=== PATIENT | female | born 1930 | race African-American/Black ===

== ENCOUNTER 2017-07-13 09:42 | Emergency (ER) | payer MEDICARE, MEDICAID ==
[~2017-07-13] VITALS: Ht 160 cm; Wt 70.0 kg
[~2017-07-13 09:42] MED LIST: AMLO5TAB96 PO; GLIP5 PO; OXYB10TA PO; ROBA750T3 PO; TOLT10TA PO; TRAD5TAB PO; TRAM50 PO
[2017-07-13 09:53] VITALS: BP 220/90; PULSE 63; RESP 22; TEMP 98.9
--- NOTE | 2017-07-13 11:04 | PD ---
HPI . needs refills on medicines Chief Complaint: Medication Refill Request Time Seen by Provider: 11:04 Travel History International Travel<30 days: No Contact w/Intl Traveler<30days: No Traveled to known affect area: No History of Present Illness HPI 87-year-old female with history of hypertension and diabetes here requesting refills on her medication. Patient recently moved from [place] approximately 4- 5 months ago and does not have a primary care locally. She tells me that she has [employer] insurance and was told that there are no providers in this area that take her plan. She does not report any issues other than feeling down about not having a place of her own to live. She says that she is staying with her friends and sleeping on their couch with her legs hanging down daily. She is not suicidal or homicidal. PFSH Past Medical History Arthritis: Yes High Cholesterol: Yes Diabetes: Yes Diminished Hearing: No Hypertension: Yes Immunizations Current: No ?: Not Menopausal: Yes Social History Alcohol Use: No Tobacco Use: No Substance Use: No Allergies-Medications (Allergen,Severity, Reaction): Coded Allergies: No Known Allergies (Verified , 07/13/17) Reported Meds & Prescriptions Reported Meds & Active Scripts Active Oxybutynin ER 24 HR (Oxybutynin Chloride) 10 Mg Tab 10 Mg PO DAILY 30 Days Norvasc (Amlodipine Besylate) 5 Mg Tab 5 Mg PO DAILY 30 Days Januvia (Sitagliptin Phosphate) 25 Mg Tab 25 Mg PO DAILY 30 Days Reported Latanoprost Opth Drops (Latanoprost) 0.005% Drops 1 Drop EACH EYE HS Refrigerate until opened. Latanoprost Opth Drops (Latanoprost) 0.005% Drops 1 Drop EACH EYE HS Refrigerate until opened. Timolol Opth Drops 0.25 % Soln Review of Systems General / Constitutional: No: Fever Eyes: No: Visual changes HENT: No: Headaches Cardiovascular: No: Chest Pain or Discomfort, Palpitations, Irregular Rhythm, Tachycardia, Diaphoresis, Syncope Respiratory: No: Cough, Shortness of Breath, Wheezing, Sneezing Gastrointestinal: No: Abdominal Pain Genitourinary: No: Dysuria Musculoskeletal: No: Pain Skin: No Rash Neurologic: No: Weakness Psychiatric: No: Depression Endocrine: No: Polydipsia Hematologic/Lymphatic: No: Easy Bruising Physical Exam Narrative GENERAL: AAO x 3, no acute distress, Well-nourished, well-developed patient. SKIN: Warm and dry. No visible rashes or bruising. HEAD: Normocephalic and atraumatic. EYES: No scleral icterus. No injection or drainage. ENT: No nasal drainage noted. Mucous membranes pink. Airway patent. NECK: Supple, trachea midline. No JVD. CARDIOVASCULAR: Regular rate and rhythm without murmurs, gallops, or rubs. RESPIRATORY: Breath sounds equal bilaterally. No accessory muscle use. No rhonchi or rales. GASTROINTESTINAL: Abdomen soft, non-tender, nondistended. EXTREMITIES: No cyanosis. Trace edema to the bilateral lower extremities. Pedal pulses palpable and normal. BACK: No obvious deformity. NEURO: CN II-12 intact, UE and LE 5/5, no focal deficits PSYCH: AAO x 3, normal affect. Data Data Last Documented VS Vital Signs Date Time Temp Pulse Resp B/P (MAP) Pulse Ox O2 Delivery O2 Flow Rate FiO2 07/13/17 12:29 85 20 193/85 (121) 99 Room Air 07/13/17 09:53 98.9 Orders Orders Hydralazine (Apresoline) (07/13/17 11:45) MDM Medical Decision Making Medical Screen Exam Complete: Yes Emergency Medical Condition: Yes Medical Record Reviewed: Yes Differential Diagnosis Medication refill, hypertension, diabetes Narrative Course 87-year-old female here requesting refills on her medication. Her blood pressures elevated. I wonder if she is taking all of her medications as prescribed and if she actually has access to all of her medications. I will provide her with refills today, ultimately she will need to see a primary care provider. I will contact case management to see if there is any way to assist her with figuring out who can take her insurance locally. I contacted case management and was told that, "This is something they do not do , but we will talk to her." Patient's bp remains elevated: I have provided her with Hydralazine here in the ED. She has no complaints and doing well. Psychiatric Attendant Glory spoke with the patient and tried to arrange placement. Patient declines transfer to any facility. She insists on returning home with her friends. She has a PCP in [place], but has not had an appointment in 1 year. BP improved. Patient feeling well. Discussed with my attending Dr. Bynum. Diagnosis Primary Impression: Medication refill Patient Instructions: General Instructions Additional Instructions: Please follow up with your primary care provider. Med/Other Pt SpecificInfo: Prescription(s) given Scripts Oxybutynin ER 24 HR (Oxybutynin ER 24 HR) 10 Mg Tab 10 MG PO DAILY for Overactive Bladder for 30 Days, TAB 0 Refills Prov: Alma Rosa Bynum MD 07/13/17 Amlodipine (Norvasc) 5 Mg Tab 5 MG PO DAILY for Blood Pressure Management for 30 Days, TAB 0 Refills Prov: Alma Rosa Bynum MD 07/13/17 Sitagliptin (Januvia) 25 Mg Tab 25 MG PO DAILY for Blood Sugar Management for 30 Days, TAB 0 Refills Prov: Alma Rosa Bynum MD 07/13/17 Disposition: 01 DISCHARGE HOME Condition: Stable Beverly Ronquillo Jul 13, 2017 11:04
[2017-07-13 11:05] VITALS: BP 210/104; PULSE 68; RESP 20; O2SAT 98
[2017-07-13] MEDS ORDERED: OXYB10TA PO ×2 (11:18→11:19)
[2017-07-13] MEDS ORDERED: SITA25 PO ×2 (11:18→11:19)
[2017-07-13] MEDS ORDERED: LATA0.002 EACH EYE (11:18)
[2017-07-13] MEDS ORDERED: AMLO5 PO ×2 (11:18→11:19)
[2017-07-13] MEDS ORDERED: TIMO0.257 (11:18)
[2017-07-13 11:31] VITALS: BP 224/92; PULSE 65; RESP 20; O2SAT 98
[2017-07-13] MEDS ORDERED: hydrALAZINE HCL 50 MG TAB PO ONE (11:45)
[2017-07-13 12:22] VITALS: BP 234/97; PULSE 87; RESP 18; O2SAT 99
[2017-07-13 12:29] VITALS: BP 193/85; PULSE 85; RESP 20; O2SAT 99
== END 2017-07-13 13:21 | disposition home or self-care (01) ==
LOC: NEPD 09:42
DX: I10 Essential (primary) hypertension (principal); E11.9 Type 2 diabetes mellitus without complications; E78.00 Pure hypercholesterolemia, unspecified; Z76.0 Encounter for issue of repeat prescription; Z79.84 Long term (current) use of oral hypoglycemic drugs; Z87.39 Personal history of other diseases of the musculoskeletal system and connective tissue
CPT/HCPCS: 99284

== ENCOUNTER 2017-12-29 17:34 | Emergency (ER) | payer MEDICARE, MEDICAID ==
[~2017-12-29] VITALS: Ht 157.5 cm; Wt 50.0 kg
[~2017-12-29 17:34] MED LIST changes: +AMLO5 PO; -AMLO5TAB96 PO; -GLIP5 PO; -ROBA750T3 PO; +SITA25 PO; +TIMO0.257; -TOLT10TA PO; -TRAD5TAB PO; -TRAM50 PO
[2017-12-29 17:35] VITALS: BP 204/97; PULSE 92; RESP 16; TEMP 97.7; O2SAT 99
[2017-12-29 17:59] VITALS: BP 186/86; PULSE 70; RESP 18; O2SAT 97
[2017-12-29] MEDS ORDERED: cloNIDine HCL 0.1 MG TAB PO ONE (18:15)
--- NOTE | 2017-12-29 18:17 | PD ---
HPI Chief Complaint: Psychiatric Symptoms Time Seen by Provider: 17:45 Travel History International Travel<30 days: No Contact w/Intl Traveler<30days: No Traveled to known affect area: No History of Present Illness HPI 87-year-old female that presents to the ED for evaluation of depression. Patient [id number] for evaluation of this. Per patient she's been feeling depressed for about almost a year now secondary to eating kicked out of living with her family. Per patient she was told that she needed to go a detention but she did not want this and she was very upset about this. She didn't depressed because she for the most part has no family here to help her even though they do live here. She per patient states with [employer] and is for the most part homeless. She does follow with her doctor and takes medications. She states that she has no suicidal ideation but feels that she might hurt some people because she feels angry about them. She denies any urinary or bowel movement issues. No chest pain or shortness of breath. History of hypertension and diabetes. His been compliant. No allergies to medication. PFSH Past Medical History Arthritis: Yes Depression: Yes Cardiovascular Problems: Yes High Cholesterol: Yes Diabetes: Yes Patient Takes Glucophage: No Diminished Hearing: No Hypertension: Yes Immunizations Current: No Tetanus Vaccination: < 5 Years Influenza Vaccination: No Menopausal: Yes Past Surgical History Surgical History: No Previous Surgery Social History Alcohol Use: No Tobacco Use: No Substance Use: No (PT DENIES) Allergies-Medications (Allergen,Severity, Reaction): Coded Allergies: No Known Allergies (Verified Adverse Reaction, Unknown, 12/29/17) Reported Meds & Prescriptions Reported Meds & Active Scripts Active Oxybutynin ER 24 HR (Oxybutynin Chloride) 10 Mg Tab 10 Mg PO DAILY 30 Days Norvasc (Amlodipine Besylate) 5 Mg Tab 5 Mg PO DAILY 30 Days Januvia (Sitagliptin Phosphate) 25 Mg Tab 25 Mg PO DAILY 30 Days Reported Timolol Opth Drops 0.25 % Soln Review of Systems Except as stated in HPI: all other systems reviewed are Neg Physical Exam Narrative GENERAL: SKIN: Warm and dry. HEAD: Atraumatic. Normocephalic. EYES: Pupils equal and round. No scleral icterus. No injection or drainage. ENT: No nasal bleeding or discharge. Mucous membranes pink and moist. Tongue is midline. No uvula deviation. NECK: Trachea midline. No JVD. CARDIOVASCULAR: Regular rate and rhythm. No murmurs, S3, S4. RESPIRATORY: No accessory muscle use. Clear to auscultation. Breath sounds equal bilaterally. GASTROINTESTINAL: Abdomen soft, non-tender, nondistended. Hepatic and splenic margins not palpable. MUSCULOSKELETAL: Extremities without clubbing, cyanosis, or edema. No obvious deformities. Full range of motion of the upper and lower extremities bilaterally. 2+ pulses bilaterally. NEUROLOGICAL: Awake and alert. No obvious cranial nerve deficits. Motor grossly within normal limits. Five out of 5 muscle strength in the arms and legs. Normal speech. PSYCHIATRIC: Appropriate mood and affect; insight and judgment normal. Data Data Last Documented VS Vital Signs Date Time Temp Pulse Resp B/P (MAP) Pulse Ox O2 Delivery O2 Flow Rate FiO2 12/29/17 17:59 70 18 186/86 (119) 97 Room Air 12/29/17 17:35 97.7 Orders Orders Complete Blood Count With Diff (12/29/17 17:45) Comprehensive Metabolic Panel (12/29/17 17:45) Thyroid Stimulating Hormone (12/29/17 17:45) Psych Screen (12/29/17 17:45) Drug Screen, Random Urine (12/29/17 17:45) Alcohol (Ethanol) (12/29/17 17:45) Salicylates (Aspirin) (12/29/17 17:45) Tylenol (Acetaminophen) (12/29/17 17:45) Clonidine (Catapres) (12/29/17 18:15) Low Novolog Scale (12/29/17 21:00) Labs Laboratory Tests Test 12/29/17 18:00 White Blood Count 5.1 TH/MM3 Red Blood Count 4.72 MIL/MM3 Hemoglobin 13.8 GM/DL Hematocrit 41.1 % Mean Corpuscular Volume 87.0 FL Mean Corpuscular Hemoglobin 29.2 PG Mean Corpuscular Hemoglobin Concent 33.5 % Red Cell Distribution Width 13.7 % Platelet Count 217 TH/MM3 Mean Platelet Volume 8.7 FL Neutrophils (%) (Auto) 71.7 % Lymphocytes (%) (Auto) 18.2 % Monocytes (%) (Auto) 7.1 % Eosinophils (%) (Auto) 1.9 % Basophils (%) (Auto) 1.1 % Neutrophils # (Auto) 3.7 TH/MM3 Lymphocytes # (Auto) 0.9 TH/MM3 Monocytes # (Auto) 0.4 TH/MM3 Eosinophils # (Auto) 0.1 TH/MM3 Basophils # (Auto) 0.1 TH/MM3 CBC Comment DIFF FINAL Differential Comment Blood Urea Nitrogen 15 MG/DL Creatinine 1.39 MG/DL Random Glucose 206 MG/DL Total Protein 8.6 GM/DL Albumin 3.7 GM/DL Calcium Level 9.3 MG/DL Alkaline Phosphatase 121 U/L Aspartate Amino Transf (AST/SGOT) 23 U/L Alanine Aminotransferase (ALT/SGPT) 17 U/L Total Bilirubin 0.4 MG/DL Sodium Level 137 MEQ/L Potassium Level 3.7 MEQ/L Chloride Level 104 MEQ/L Carbon Dioxide Level 24.7 MEQ/L Anion Gap 8 MEQ/L Estimat Glomerular Filtration Rate 43 ML/MIN Thyroid Stimulating Hormone 3rd Gen 1.810 uIU/ML Salicylates Level LESS THAN 1.7 MG/DL Acetaminophen Level LESS THAN 2.0 MCG/ML Ethyl Alcohol Level LESS THAN 3 MG/DL MDM Medical Decision Making Medical Screen Exam Complete: Yes Emergency Medical Condition: Yes Medical Record Reviewed: Yes Interpretation(s) CBC & BMP Diagram 12/29/17 18:00 Total Protein 8.6 H, Albumin 3.7, Calcium Level 9.3, Alkaline Phosphatase 121 H , Aspartate Amino Transf (AST/SGOT) 23, Alanine Aminotransferase (ALT/SGPT) 17, Total Bilirubin 0.4 Differential Diagnosis Depression versus suicidal ideation versus anxiety versus adjustment disorder versus mood disorder versus bipolar disorder versus schizophrenia versus paranoid disorder versus psychosis versus substance abuse versus alcohol abuse versus alcohol induced psychosis versus homicidality addition versus cutting versus personality disorder Narrative Course 87-year-old female that presents to the ED for evaluation of psych. Patient was properly examined and was found to have signs and symptoms consistent appears to be with psych. Patient requests psychiatric eval. Labs ordered. Patient was medically cleared. Okay to be seen by psych. Given clonidine for her blood pressure. Mental health screening was discussed with the patient. Diagnosis Primary Impression: Depression Qualified Codes: F33.1 - Major depressive disorder, recurrent, moderate Mario Hillman Dec 29, 2017 18:17
[2017-12-29 19:03] LABS: AUTOMATED NEUTROPHIL # 3.7 TH/MM3 (1.8-7.7); BASOPHIL # 0.1 TH/MM3 (0-0.2); BASOPHIL % 1.1 % (0.0-2.0); EOSINOPHIL # 0.1 TH/MM3 (0-0.4); EOSINOPHIL % 1.9 % (0.0-4.0); HEMATOCRIT 41.1 % (35.0-46.0); HEMOGLOBIN 13.8 GM/DL (11.6-15.3); LYMPH % 18.2 % (9.0-44.0); LYMPHOCYTE # 0.9 TH/MM3 (1.0-4.8); MEAN CORPUSCULAR HEMOGLOBIN 29.2 PG (27.0-34.0); MEAN CORPUSCULAR HGB CONC 33.5 % (32.0-36.0); MEAN PLATELET VOLUME 8.7 FL (7.0-11.0); MONO % 7.1 % (0.0-8.0); MONOCYTE # 0.4 TH/MM3 (0-0.9); NEUT % 71.7 % (16.0-70.0); PLATELET COUNT 217 TH/MM3 (150-450); RED BLOOD COUNT 4.72 MIL/MM3 (4.00-5.30); RED CELL DISTRIBUTION WIDTH 13.7 % (11.6-17.2); WHITE BLOOD COUNT 5.1 TH/MM3 (4.0-11.0)
[2017-12-29 19:12] LABS: ALKALINE PHOSPHATASE 121 U/L (45-117); ALT (GPT) 17 U/L (10-53); TOTAL BILIRUBIN ADULT 0.4 MG/DL (0.2-1.0); TOTAL PROTEIN 8.6 GM/DL (6.4-8.2)
[2017-12-29 19:16] LABS: ALBUMIN 3.7 GM/DL (3.4-5.0); AST (GOT) 23 U/L (15-37); BICARBONATE 24.7 MEQ/L (21.0-32.0); BLOOD UREA NITROGEN 15 MG/DL (7-18); CALCIUM 9.3 MG/DL (8.5-10.1); CHLORIDE 104 MEQ/L (98-107); CREATININE 1.39 MG/DL (0.50-1.00); GLOMERULAR FILTRATION RATE 43 ML/MIN (>89); GLUCOSE,RANDOM 206 MG/DL (74-106); SODIUM (NA) 137 MEQ/L (136-145)
[2017-12-29 19:17] LABS: ACETAMINOPHEN LESS THAN 2.0 MCG/ML (10.0-30.0)
[2017-12-29 21:31] VITALS: BP 137/67; PULSE 67; RESP 14; O2SAT 96
[2017-12-29] MEDS: INSULIN ASPART SUPPLEMENTAL SCALE SQ SCH ×2 (22:42→22:46)
[2017-12-30 07:41] VITALS: BP 152/74; PULSE 96; RESP 16; TEMP 97.7; O2SAT 98
[2017-12-30 12:00] VITALS: BP 133/78; PULSE 67; RESP 15; TEMP 97.8; O2SAT 99
[2017-12-30] MEDS: INSULIN ASPART SUPPLEMENTAL SCALE SQ SCH ×3 (12:23→21:00)
[2017-12-30 14:25] VITALS: BP 170/72; PULSE 68; RESP 15; TEMP 97.8; O2SAT 98
[2017-12-30 15:55] VITALS: BP 151/79; PULSE 76; RESP 18; TEMP 97.6; O2SAT 96
[2017-12-30 20:00] VITALS: BP 132/67; PULSE 86; RESP 18; TEMP 98.4; O2SAT 96
[2017-12-31 07:30] VITALS: BP 179/86; PULSE 70; RESP 15; TEMP 98; O2SAT 98
[2017-12-31] MEDS: INSULIN ASPART SUPPLEMENTAL SCALE SQ SCH ×4 (08:56→21:00)
[2018-01-01] MEDS: INSULIN ASPART SUPPLEMENTAL SCALE SQ SCH (08:00)
[2018-01-01 08:07] VITALS: BP 196/94; PULSE 74; RESP 17; O2SAT 97
[2018-01-01] MEDS ORDERED: amLODIPine BESYLATE 5 MG TAB PO ONE (08:30)
--- NOTE | 2018-01-01 10:58 | PD ---
Physical Exam Narrative Patient is an 87 year old female, seen 63 hours ago by a previous provider. She originally came in complaining of feeling depressed. She never cited any suicidal thoughts. She was seen by the psychiatric screener and cleared. She has been here because she has no home and case management has been trying to make arrangements for her. She has had no issues while she has been here. Data Data Last Documented VS Vital Signs Date Time Temp Pulse Resp B/P (MAP) Pulse Ox O2 Delivery O2 Flow Rate FiO2 01/01/18 08:07 74 17 196/94 (128) 97 Room Air 12/31/17 07:30 98.0 Orders Orders Complete Blood Count With Diff (12/29/17 17:45) Comprehensive Metabolic Panel (12/29/17 17:45) Thyroid Stimulating Hormone (12/29/17 17:45) Psych Screen (12/29/17 17:45) Drug Screen, Random Urine (12/29/17 17:45) Alcohol (Ethanol) (12/29/17 17:45) Salicylates (Aspirin) (12/29/17 17:45) Tylenol (Acetaminophen) (12/29/17 17:45) Clonidine (Catapres) (12/29/17 18:15) Insulin Aspart Supplemtl Scale (Novolog (12/29/17 21:00) Diet Diabetic (12/30/17 Breakfast) Diet Diabetic (12/30/17 Lunch) Diet Diabetic (12/31/17 Breakfast) Diet Regular Basic (01/01/18 Breakfast) Amlodipine (Norvasc) (01/01/18 08:30) Ed Discharge Order (01/01/18 10:45) Labs Laboratory Tests Test 12/29/17 18:00 12/30/17 01:55 White Blood Count 5.1 TH/MM3 Red Blood Count 4.72 MIL/MM3 Hemoglobin 13.8 GM/DL Hematocrit 41.1 % Mean Corpuscular Volume 87.0 FL Mean Corpuscular Hemoglobin 29.2 PG Mean Corpuscular Hemoglobin Concent 33.5 % Red Cell Distribution Width 13.7 % Platelet Count 217 TH/MM3 Mean Platelet Volume 8.7 FL Neutrophils (%) (Auto) 71.7 % Lymphocytes (%) (Auto) 18.2 % Monocytes (%) (Auto) 7.1 % Eosinophils (%) (Auto) 1.9 % Basophils (%) (Auto) 1.1 % Neutrophils # (Auto) 3.7 TH/MM3 Lymphocytes # (Auto) 0.9 TH/MM3 Monocytes # (Auto) 0.4 TH/MM3 Eosinophils # (Auto) 0.1 TH/MM3 Basophils # (Auto) 0.1 TH/MM3 CBC Comment DIFF FINAL Differential Comment Blood Urea Nitrogen 15 MG/DL Creatinine 1.39 MG/DL Random Glucose 206 MG/DL Total Protein 8.6 GM/DL Albumin 3.7 GM/DL Calcium Level 9.3 MG/DL Alkaline Phosphatase 121 U/L Aspartate Amino Transf (AST/SGOT) 23 U/L Alanine Aminotransferase (ALT/SGPT) 17 U/L Total Bilirubin 0.4 MG/DL Sodium Level 137 MEQ/L Potassium Level 3.7 MEQ/L Chloride Level 104 MEQ/L Carbon Dioxide Level 24.7 MEQ/L Anion Gap 8 MEQ/L Estimat Glomerular Filtration Rate 43 ML/MIN Thyroid Stimulating Hormone 3rd Gen 1.810 uIU/ML Salicylates Level LESS THAN 1.7 MG/DL Acetaminophen Level LESS THAN 2.0 MCG/ML Ethyl Alcohol Level LESS THAN 3 MG/DL Urine Opiates Screen NEG Urine Barbiturates Screen NEG Urine Amphetamines Screen NEG Urine Benzodiazepines Screen NEG Urine Cocaine Screen NEG Urine Cannabinoids Screen NEG MDM Supervised Visit with JOANNA: No Narrative Course Case Management found a custodial for her, but she refuses to go. They have called several contacts she has given them and all have refused to take her in. She is awake, alert, oriented times 3. She again denies any suicidal ideation. She has numbers to call to try and arrange housing. Case Management has arranged for a short motel stay for her, so she can try and work something out. She will be discharged. Advised to return at any time for any medical concerns or issues. Diagnosis Primary Impression: Depression Qualified Codes: F33.1 - Major depressive disorder, recurrent, moderate Disposition: DISCHARGE HOME Condition: Stable Hoa Aguilera MD Jan 01, 2018 10:58
== END 2018-01-01 13:40 | disposition home or self-care (01) ==
LOC: NEPE 17:34 → NEPD 01-01 13:40
DX: F32.9 Major depressive disorder, single episode, unspecified (principal); M19.90 Unspecified osteoarthritis, unspecified site; E78.00 Pure hypercholesterolemia, unspecified; E11.9 Type 2 diabetes mellitus without complications; I10 Essential (primary) hypertension; Z79.899 Other long term (current) drug therapy
CPT/HCPCS: 80053; 80307; 82948; 84443; 85025; 96372; 99284; J1815